=== PATIENT | female | born 1980 | race Caucasian/White ===

== ENCOUNTER 2018-09-23 07:46 | Outpatient (CLI) | payer OTHER ==
--- NOTE | 2018-09-23 08:04 | ULT ---
THYROID ULTRASOUND: HISTORY: Thyroid lesion FINDINGS: Multiple longitudinal and transverse images of the thyroid gland is obtained using multi hertz linear array transducer. Real-time and color flow images demonstrate the right thyroid lobe to measure 5.0 x 1.2 x 1.6 cm and the left 4.2 x 1.5 x 1.3 cm. A small calcified thyroid nodule seen in the upper pole of the right thyroid measuring approximately 3 mm. This lesion is too small to characterize. It does appear to have well-circumscribed margins. Follow-up sonogram in 6 months may be of use. IMPRESSION: Single thyroid nodule partially calcified in the upper pole of the right thyroid. Transcribed Date/Time: 09/23/2018 8:27 AM
--- NOTE | 2018-09-23 08:50 | ULT ---
EXAM: US Abdominal CLINICAL HISTORY: Left upper quadrant pain, when eating. Evaluate spleen.. COMPARISON: None. FINDINGS: Pancreas: Visualized pancreatic parenchyma has a normal echotexture. IVC: Normal caliber. Aorta: Normal caliber. Liver:Well circumscribed anechoic focus measuring 1.5 x 2.3 x 2.6 cm, compatible with hepatic cysts. No solid masses. Gallbladder: No sonographic evidence of cholelithiasis, gallbladder wall thickening or pericholecysti c fluid. Randolph's sign:Negative CBD: 0.4 cm. Main portal vein is patent. Right kidney: No hydronephrosis. Right kidney measuring 9.9 x 5.0 x 6.9 cm. cm in length. Left kidney: No hydronephrosis. Left kidney measuring 5.2 x 10.7 x 4.9 cm per cm in length Spleen: Normal echotexture, with maximum dimension of 10.1 cm IMPRESSION: 1. No sonographic evidence of cholelithiasis or colitis status. 2. No hydronephrosis 3 Left hepatic lobe cyst. 4. Normal spleen echotexture. No splenomegaly.
== END 2018-09-23 07:47 | disposition home or self-care (01) ==
LOC: BICULT 07:46
PROVIDERS: ATTEND Internal Medicine Hematology & Oncology
DX: E04.1 Nontoxic single thyroid nodule (principal); R10.12 Left upper quadrant pain; R16.1 Splenomegaly, not elsewhere classified; D72.818 Other decreased white blood cell count; K76.89 Other specified diseases of liver
CPT/HCPCS: 76536; 76700

== ENCOUNTER 2018-11-27 09:12 | Day surgery (SDC) | payer OTHER ==
[2018-11-26 13:20] VITALS: BMI 14.9
[2018-11-27 09:52] LABS: INR-International Normal Ratio 1.1; PTT 33.7 SEC (22.9-36.1); Prothrombin Time 14.2 SEC (12.0-14.7)
[2018-11-27 10:05] LABS: BHCG - Serum Negative (NEGATIVE); Pregs Control Background? CLEAR/WHITE (CLR/WHITE); Pregs Control Bar Appear? YES (CONTROL BAR)
--- NOTE | 2018-11-27 12:04 | CT ---
CT GUIDED RIGHT ILIAC BONE MARROW ASPIRATION AND BIOPSY: CLINICAL HISTORY: Decreased white blood cell count. PROCEDURE: The procedure including the risks and complications were explained to the patient, and informed conse nt was obtained. The patient was placed on the CT scan table in the prone position. Noncontrasted CT images were obtained through the pelvis. An area was marked overlying the right yasmin c bone, and the area was meticulously prepped and draped in usual sterile fashion. The skin and subcutaneous tissues were infiltrated with buffered 1% lidocaine for local anesthesia. After a small skin incision was made, an 11-gauge needle was advanced and positioning was confirmed w ith axial CT images. Approximately 8 milliliters of bone marrow aspirate was obtained. The needle was then further advanced, and a bone marrow biopsy was performed. The needle was removed, and hemost asis was achieved with direct pressure. The patient tolerated the procedure well and without immediate complication. The patient was transported to radiology nurses holding area for further jayy toring prior to discharge. IMPRESSION: Technically successful percutaneous bone marrow aspiration and biopsy. Pathology results are pending.
== END 2018-11-27 11:30 | disposition home or self-care (01) ==
LOC: CT 09:12
PROVIDERS: ATTEND Internal Medicine Hematology & Oncology
PROC: 079T3ZX Drainage of Bone Marrow, Percutaneous Approach, Diagnostic (ICD-10-PCS; principal; 2018-11-27)
PROC: 07DR3ZX Extraction of Iliac Bone Marrow, Percutaneous Approach, Diagnostic (ICD-10-PCS; principal; 2018-11-27)
DX: D75.89 Other specified diseases of blood and blood-forming organs (principal); D70.9 Neutropenia, unspecified; D64.9 Anemia, unspecified; K21.9 Gastro-esophageal reflux disease without esophagitis; F41.9 Anxiety disorder, unspecified; Z95.0 Presence of cardiac pacemaker; Z88.2 Allergy status to sulfonamides; Z79.899 Other long term (current) drug therapy
CPT/HCPCS: 20225; 36415; 77012; 84703; 85097; 85610; 85730; 88184; 88237; 88305; 88311; 88313

== ENCOUNTER 2019-08-21 11:49 | Emergency (ER) | payer BC, OTHER ==
[2019-08-21] MEDS ORDERED: Vancomycin 1 GM/200 ML BAG ONE (12:36)
[2019-08-21 12:47] LABS: #Monocytes 0.3 thou/uL (0.11-0.59); %Basophils 0.7 % (0.0-1.0); %Eosinophils 0.3 % (0.0-10.0); %Lymphocytes 22.8 % (21.0-51.0); %Monocytes 6.2 % (0.0-10.0); Hemoglobin 12.9 g/dL (12.0-16.0); Mean Corpuscular HGB CONC 33.2 g/dL (32.0-36.0); Mean Corpuscular Hemoglobin 35.2 pg (27.0-31.0); Mean Platelet Volume 6.7 fL (7.4-10.4); Platelet Count 216 thou/uL (130-400); Red Blood Cell (RBC) Count 3.65 mill/uL (4.20-5.40); White Blood Cell (WBC) Count 4.2 thou/uL (4.8-10.8)
--- NOTE | 2019-08-21 12:59 | RAD ---
Exam:Left tibia fibula 2 views HISTORY: Erythema. Pain. COMPARISON: None FINDINGS: No fracture, cortical irregularity or periosteal reaction. No radiopaque foreign bodies. IMPRESSION: No acute abnormality in the left tibia/fibula
[2019-08-21 13:10] LABS: MDiff Complete? YES; Macrocytosis SLIGHT = 6-15 cells (100X) (0-5/hpf); Platelet Morphology Comment Appears Adequate
[2019-08-21 13:13] LABS: ALT (SGPT) 11 U/L (8-55); AST (SGOT) 20 U/L (5-34); Albumin 3.8 g/dL (3.5-5.0); Alkaline Phosphatase 34 U/L (40-110); Anion Gap 12 mmol/L (10-20); BUN (Urea Nitrogen) 8 mg/dL (7.0-18.7); Bilirubin, Total 0.7 mg/dL (0.2-1.2); CK (CPK) 109 U/L (29-168); Calc. Creatinine Clearance 0 mL/min (70-130); Calcium 8.5 mg/dL (7.8-10.44); Carbon Dioxide 22 mmol/L (22-29); Chloride 108 mmol/L (98-107); Estimated GFR-MDRD Greater than 90; Globulin 2.4 g/dL (2.4-3.5); Glucose 69 mg/dL (70-105); Potassium 4.2 mmol/L (3.5-5.1); Protein, Total 6.2 g/dL (6.0-8.3); Sodium 138 mmol/L (136-145)
[2019-08-21] MEDS ORDERED: Ampicillin/Sulbactam 3 GM in Sodium Chloride 0.9% 100 ML IVPB ONE (14:45)
--- NOTE | 2019-08-21 15:07 | RAD ---
RIGHT FORELEG 2 VIEWS: INDICATION: Redness within both lower extremities. COMPARISON: None. FINDINGS/IMPRESSION: There is diffuse osteopenia. No acute osseous abnormality is evident. No radiopaque foreign body is demonstrated. POS: [facility]
--- NOTE | 2019-08-21 16:15 | PDOC.EVN ---
Event Note - Event Note Event Note: Called ED at 4:05pm and was notified that the patient decided to leave AMA.
[2019-08-22] MEDS ORDERED: Enoxaparin Sodium 30 MG/0.3 ML SYRINGE SC SCH (09:00)
== END 2019-08-21 15:58 | disposition left against medical advice (07) ==
LOC: ERS 11:49
DX: L03.116 Cellulitis of left lower limb (principal); L03.115 Cellulitis of right lower limb
CPT/HCPCS: 80053; 82550; 83605; 85025; 85652; 86140; 96365; 96367; J0295; J3370; J3490